=== PATIENT | female | born 1955 | race Caucasian/White ===

== ENCOUNTER 2022-07-23 10:26 | Emergency (ER) | payer OTHER, SELFPAY ==
--- NOTE | ~2022-07-23 | CT_ITS ---
Indication: Weakness falls for one month EXAMINATION: CT brain, CT cervical spine. This CT examination was performed using dose optimization techniques as appropriate, variously including the following: *Automated exposure control *Adjustment of mA and/or kV according to patient size (this includes techniques or standardized protocols for targeted exams where dose is matched to indication/reason for exam; i.e. extremities or head) *Use of iterative reconstruction technique. Radiation dose is [address] brain; Multiple sequences are obtained here. There is motion on many of these images. There is no midline shift or mass effect. CT cervical spine; Motion also degrades imaging here. No convincing evidence of fracture or dislocation on the imaging submitted. CT/CT head/brain wo IV con IMPRESSION: nondiagnostic CT the brain. Repeat is recommended when the patient is able. At that time I would also repeat the cervical spine. There is motion. No obvious finding but repeat would be recommended for definitive evaluation
--- NOTE | ~2022-07-23 | CT_ITS ---
Indication: Weakness falls for one month EXAMINATION: CT brain, CT cervical spine. This CT examination was performed using dose optimization techniques as appropriate, variously including the following: *Automated exposure control *Adjustment of mA and/or kV according to patient size (this includes techniques or standardized protocols for targeted exams where dose is matched to indication/reason for exam; i.e. extremities or head) *Use of iterative reconstruction technique. Radiation dose is [address] brain; Multiple sequences are obtained here. There is motion on many of these images. There is no midline shift or mass effect. CT cervical spine; Motion also degrades imaging here. No convincing evidence of fracture or dislocation on the imaging submitted. CT/CT cervical spine wo IV con IMPRESSION: nondiagnostic CT the brain. Repeat is recommended when the patient is able. At that time I would also repeat the cervical spine. There is motion. No obvious finding but repeat would be recommended for definitive evaluation
--- NOTE | ~2022-07-23 | CT_ITS ---
Examination: CT of the chest abdomen pelvis INDICATION: Weakness, hyperglycemia right upper quadrant abdominal pain. Axial imaging with coronal and sagittal reformatted images. Radiation dose is 1162 CT chest; The thoracic inlet is unremarkable with the exception of some soft tissue density associated with the right side of the trachea. This may represent secretions. Consider direct visualization. Coronary calcifications are noted. Some mildly prominent central adenopathy. No bulky adenopathy is seen here. This is a noncontrast study but the hilar regions do not appear pathologically enlarged. Imaging of the lung reid. Right lung; There is no pneumothorax. No significant infiltrate or effusion. Motion degrades imaging here. 4 mm nodule on image 24 of 62. Left lung; No pneumothorax. No effusion. No infiltrate. Again motion degrades imaging. Upper abdomen; There is limitation here from artifact related by the patient's arm in the field. Heterogeneous appearance the liver. I cannot rule out the liver lesions. Ultrasound would be recommended. For example a possible 2.2 x 2.2 cm lesion on image 14. Again artifact significantly limits this exam. Spleen is grossly within normal limits. The pancreas is unremarkable. The adrenal glands are within normal limits. The kidneys appear nonhydronephrotic. Some subtle areas of low attenuation within the kidneys but again there is artifact limits evaluation. Area of low attenuation midpole left kidney measures 1.3 cm. This could be artifactual. Underlying abnormality cannot be excluded. Nonobstructing calculus lower pole in the right is noted. Gallbladder shows probable small gallstones or sludge. Bladder is grossly unremarkable. There is contrast in the large bowel. The bowel pattern is felt to be nonobstructing. Likely diverticular disease in the colon but no convincing evidence for diverticulitis. The abdominal wall is felt to be within normal limits. There is no free fluid. Atherosclerotic changes in the vasculature are noted. There is no bulky adenopathy here. Review of the bone windows in the chest and abdomen does not demonstrate acute finding. Mild anterolisthesis of L4 and L5 may be degenerative in nature. CT/CT abdomen pelvis wo IV con IMPRESSION: This exam is limited here from motion artifact and artifact otherwise as described. In the chest there is no evidence for pneumothorax or effusion. No significant infiltrate is seen. Some soft tissue along the right-sided the upper trachea could be secretions. Underlying lesion cannot be excluded Coronary calcifications are noted There does appear to be a 4 mm nodule in the right midlung. If there are risk factors for lung malignancy recommend CT of the chest and one year. In the abdomen pelvis again evaluation is largely limited There is no free fluid in the bowel pattern is felt to be nonobstructing. There is no free air. Cannot exclude abnormality/lesions of the liver. This appearance may be artifactual as described. Recommend repeat CT with contrast or ultrasound to fully evaluate. Similarly heterogeneous appearance to the kidneys is likely artifactual related to motion and again the patient's arms within the field. Underlying lesions cannot be excluded. Other findings as described above. There is diverticulosis here but no evidence for diverticulitis.
[2022-07-23 10:51] VITALS: BP 106/69; PULSE 97; RESP 18; TEMP 36.6; O2SAT 94; BMI 23.4
--- NOTE | 2022-07-23 10:56 | ECG_ITS ---
Test Reason : weakness Blood Pressure : / mmHG Vent. Rate : 094 BPM Atrial Rate : 094 BPM P-R Int : 132 ms QRS Dur : 080 ms QT Int : 360 ms P-R-T Axes : 088 100 045 degrees QTc Int : 450 ms Poor data quality Normal sinus rhythm Right atrial enlargement Rightward axis Pulmonary disease pattern Abnormal ECG When compared with ECG of 19-MAY-2019 19:57, ST no longer depressed in Lateral leads Referred By: Generic ED Physician Electronically Signed By:AWILDA CRA MD
[2022-07-23 11:25] LABS: MANUAL DIFF FLAG NO
[2022-07-23 11:26] LABS: Basophils Absolute Auto 0.1 X10*3/uL (0.0-0.2); Basophils Percent Auto 0.7 % (0-2); Eosinophils Percent Auto 0.3 % (0-4); Hemoglobin 16.3 g/dl (12.0-16.0); Imm Gran Abs Auto 0.04 X10*3/uL (0.00-0.03); Imm Gran Pct Auto 0.4 % (0.0-0.4); Lymphocytes Percent Auto 10.2 % (20-40); Mean Corpuscular HGB Conc 34.7 g/dl (31.0-35.0); Mean Corpuscular Hemoglobin 28.3 pg (27.0-33.0); Mean Corpuscular Volume 81.7 fL (80.0-98.0); Mean Platelet Volume 11.5 fL (9.4-12.3); Monocytes Absolute Auto 0.6 X10*3/uL (0.1-1.2); Monocytes Percent Auto 5.6 % (2-11); Neutrophils Absolute Auto 8.4 x10*3/uL (2.0-8.3); Neutrophils Percent Auto 82.8 % (45-73); Platelet Count 241 X10*3/uL (160-400); Red Blood Count 5.75 X10*6/uL (4.20-5.50); Red Cell Distribution Width 11.5 % (11.0-16.0); White Blood Count 10.1 X10*3/uL (4.8-10.8)
[2022-07-23 11:46] LABS: Troponin-I High Sensitivity 5.9 ng/L (<3.5-17.0)
[2022-07-23 12:07] LABS: Alanine Aminotransferase 10 U/L (0-31); Albumin Level 4.4 g/dL (3.5-5.0); Alkaline Phosphatase 100 U/L (39-117); Anion Gap 22 (12-20); Aspartate Amino Transferase 10 U/L (5-31); Bilirubin Total 0.5 mg/dL (0.0-1.0); Blood Urea Nitrogen 36 mg/dL (9-16); Calcium 10.4 mg/dL (8.4-10.2); Carbon Dioxide 24 mmol/L (22-29); Chloride 92 mmol/L (96-108); Creatinine Clr Calc Pharmacy 27.5; Estimated Glomerular Filt Rate 36; Glucose Random 681 mg/dL (60-115); Potassium 5.5 mmol/L (3.3-5.1); Sodium 132 mmol/L (135-145); Total Protein 7.7 g/dL (6.5-8.0)
[2022-07-23 12:33] VITALS: BP 135/78; PULSE 88; RESP 16; O2SAT 91
[2022-07-23] MEDS: 0.9 % Sodium Chloride 1,000 ML 999 ML IVCONT ×3 (12:43→16:58)
[2022-07-23] MEDS: Insulin Regular, Human 100 UNIT/ML 3 ML VIAL 10 UNIT IVPUSH (12:43)
[2022-07-23 12:44] LABS: Glucose, Whole Blood 544 mg/dL (60-115)
[2022-07-23 12:59] LABS: Lipase 9 U/L (8-78)
[2022-07-23 13:12] LABS: Ammonia 18 umol/L (13-55)
[2022-07-23 13:16] LABS: Lactic Acid 0.9 mmol/L (0.5-2.0)
[2022-07-23 13:17] LABS: Ethanol < 10 mg/dL
[2022-07-23 13:22] LABS: Acetone, serum QL Negative (Negative)
[2022-07-23 13:24] LABS: COVID-19 Test Negative (Negative); IDNOW Serial# 16C4AD1C
[2022-07-23 13:33] LABS: Appearance Urine Clear; Color Urine Yellow; Glucose Urine UA >=1000 mg/dL (Negative); Leukocyte Esterase Urine Negative (Negative); Nitrite Urine Negative (Negative); PH 5.5 (5.0-9.0); Specific Gravity - Urine >= 1.030 (1.005-1.025); UMIC TRIGGER UACC YES; Urine Blood Negative (Negative); Urine Ketones Negative (Negative); Urine Protein Negative (Neg-Trace)
[2022-07-23 13:38] LABS: Bacteria Urine None Seen (None Seen); Hyaline Casts Urine 0-2 /LPF (0-2); RBC Urine 0-2 /HPF (0-2); Squamous Epithelial Cell Urine 0-2 /HPF (0-2); WBC Urine 0-5 /HPF (0-5)
[2022-07-23 13:58] LABS: Amphetamine Screen Urine Not Detected (Not Detect); Barbiturates, Urine Not Detected (Not Detect); Benzodiazepines Screen Urine Not Detected (Not Detect); Cannabinoid Screen Urine Not Detected (Not Detect); Cocaine Screen Urine Not Detected (Not Detect); Fentanyl, urine Not Detected (Not Detect); Opiate Screen Urine Not Detected (Not Detect); Phencyclidine Screen Urine Not Detected (Not Detect)
[2022-07-23] MEDS: Nicotine 21 MG PATCH.TD24 TRANSDERMA (14:03)
[2022-07-23] MEDS: LORazepam 1 MG TABLET 2 MG PO (14:03)
[2022-07-23 14:05] LABS: Glucose, Whole Blood 225 mg/dL (60-115)
[2022-07-23 14:07] VITALS: BP 135/78; PULSE 88; RESP 18; O2SAT 100
--- NOTE | 2022-07-23 14:08 | PC.NURSE ---
Patien anxious, trying to get out of bed. constant redirection needed, gave her lorazepam 2mg. Patient also asking to go outside to smoke a cigaret, per providers orders put a nicotine patch on left arm. color television console monitor unable to be assess when patient is shaking according to patient this is baseline. when not shaking normal sinus heart rate in the 80s
--- NOTE | 2022-07-23 14:10 | ED.WEAKNESS ---
HPI - Weakness General Chief complaint: General Medical Stated complaint: multiple complaints Time Seen by Provider: 07/23/22 12:04 Source: patient Mode of arrival: ambulatory Limitations: other (Poor historian/increased confusion/altered mental status) History of Present Illness HPI Narrative: 66-year-old female with a past medical history of chronic pain with history of opioid abuse on Suboxone, COPD, HTN, COPD, SD s/p CABG who smokes cigarettes daily she reports presenting to the ER due to increased confusion, generalized weakness, multiple falls, back pain, decreased p.o. intake and feeling of being on while at home over the past month worse in the past 2 weeks. Caregiver reports that she fell this morning. Patient reports that she has been having elevated glucose level despite taking her insulin at home reports she took it this morning although is unsure what insulin she is on. She reports she has also had multiple falls over the past month. She also reports abdominal pain and back pain. She denies any head injury, loss of consciousness, prolonged down time, changes in vision, jaw pain, nausea/vomiting, chest pain or shortness of breath, dyspnea on exertion, orthopnea, palpitations, paresthesias, flank pain, dysuria, hematuria, abnormal vaginal discharge, black or bloody stools, urinary bowel incontinence or retention, rashes, extremity pain or swelling, lower extremity edema or calf tenderness, recent travel or sick contacts, cough, sore throat, nasal congestion, headaches, neck pain/stiffness or any other symptoms complaints or concerns at this time. MD Complaint: generalized weakness and lack of energy Onset (ago): week(s) (Over the past month worse in the past 2 weeks) Duration: constant and progressively worsening Location: generalized Severity: moderate Relieving factors: none Exacerbating factors: none Associated symptoms: confusion Related Data Allergies Allergy/AdvReac Type Severity Reaction Status Date / Time broccoli [BROCCOLI] Allergy Unknown HIVES Unverified 06/27/20 17:52 gabapentin [GABAPENTIN] Allergy Unknown UNKNOWN Unverified 07/01/20 06:59 latex [LATEX] Allergy Unknown UNKNOWN Unverified 07/01/20 06:59 shellfish derived Allergy Unknown UNK Unverified 06/27/20 17:52 [SHELLFISH DERIVED] Review of Systems Review of Systems: Constitutional : + decreased p.o. intake, + generalized fatigue/malaise, No Weight loss, No Fever, No Chills, No Night Sweats ENT/Mouth : No Hearing loss, No Ear Pain, No Nasal Congestion, No Sinus Pain, No Hoarseness, No sore throat, No Rhinorrhea, No Swallowing Difficulty Eyes: No Eye Pain, No Swelling, No Redness, No Foreign Body, No Discharge, No Vision Changes Cardiovascular : No Chest Pain, No SOB, No Dyspnea on Exertion, No Orthopnea, No Edema, No Palpitations Respiratory : No Cough, No Sputum, No Wheezing, No Smoke Exposure, No Dyspnea Gastrointestinal : + abdominal pain, No Nausea, No Vomiting, No Diarrhea, No Constipation, No Hematochezia, No Melena Genitourinary : no irregular bleeding, No Dysuria, No Urinary Frequency, No Hematuria, No Urinary Incontinence, No Urgency, No Flank Pain, No Urinary Flow Changes, No Hesitancy Musculoskeletal : + back pain, No joint pain, No Myalgias, No Joint Swelling Skin : No Skin Lesions, No rash Neuro : + General Weakness c multiple falls, + Confusion, No Focal Weakness, No Numbness, No Paresthesias, No Loss of Consciousness, No Dizziness, No Headache Psych : No Anxiety/Panic, No Depression, No SI/HI/AH/VH, No Social Issues, Heme/Lymph: No Bruising, No Bleeding,No Lymphadenopathy Endocrine : + Polyuria, + Polydipsia, + elevated glucose levels, No Temperature Intolerance Yes all other systems are reviewed and are negative [facility] Past Medical History Attestation statement: The following information was validated with the patient. Source: old records reviewed, obtained from family and nursing notes reviewed Surgical History Hx of CABG Social History Social History Patient Tobacco Use Status: Current everyday Tobacco user Use of substances other than those prescribed or required for medical reasons: No Advance Directives: No Advance Directives Information Provided: Yes Physical Exam Vital Signs: Vital Signs: Last Vital Signs Temp 97.9 F 07/23/22 10:51 Pulse 78 07/23/22 16:19 Resp 18 07/23/22 16:19 BP 99/60 07/23/22 16:19 Pulse Ox 98 07/23/22 16:19 O2 Del Method 10/13/22 16:19 O2 Flow Rate 2 07/23/22 16:19 BMI result Body Mass Index 23.4 Vital signs have been reviewed as normal and appeared to be correct. Blood pressure normal. Heart rate normal. Respiration rate normal. Temperature normal. Oxygen saturation normal. Appearance: Alert although appears confused. Oriented to self. Reports that she was at [facility]. Disheveled. Poor hygiene. Poor grooming. No acute distress. Head: Normal external exam. Normocephalic. Atraumatic. Able to rotate head bilaterally. No Ortega sign no raccoon eyes noted. Eyes: PERRLA. EOMI. No nystagmus noted. Conjunctiva and sclera normal. Eyelids normal. Corneal reflex normal. ENT: EAC normal. TM's Normal. No hemotympanum noted. No septal hematoma noted. Hearing normal. Pharynx normal. Uvula midline. tongue midline. Moist mucous membranes. No trismus noted. No drooling noted. No muffled voice noted. No nystagmus noted. Neck: Normal inspection. Neck supple. FROM. No adenopathy. Trachea midline. Thyroid Normal. No meningeal signs. No neck mass noted. CVS: Normal heart rate and rhythm. Heart sound normal. No murmurs noted. Pulses normal throughout. Respiratory: No respiratory distress. Painless inspiration. Breath sounds normal. No wheezes/rales/rhonchi noted. Chest nontender. No accessory muscle usage noted or decreased air movement noted. Abdomen: Soft and moderate tenderness palpation to right upper quadrant with guarding. Bowel sounds normal in all 4 quadrants. No distention noted. No organomegaly noted. No visible injury noted. Negative Rovsing test. Negative obturator's test. Negative psoas test. Negative Bustamante's test. Back: No CVA tenderness. Full range of motion noted. Skin: Skin warm and dry. Normal skin color. Normal skin turgor. No rashes/lesions/lacerations noted. Extremities: No lower extremity edema. Extremities exhibit normal range of motion. Extremities nontender. Able to shrug shoulders bilaterally and keep up against resistance. Neuro: Oriented X 3. No motor deficit. No sensory deficit. Reflexes normal. Moving all extremities. No focal motor deficits. Cranial nerves II-XI intact bilaterally. Facial strength normal. Normal cognition. Speech normal. Gait normal. Strength 5/5 throughout. No pronator drift. No tremor noted. No fasciculations noted. No rigidity noted. Muscle tone normal throughout. No asterixis noted. Wlcrmq-mi-rycz test normal. Heel to glass test normal. Tandem gait normal. Does not sway with eyes open. Romberg test negative. Rapid alternating movement upper extremity normal. Rapid alternating movement lower extremity normal. Hand drop from overhead Misses face. NIHSS score 0. Course Course Course Narrative: 12:30pm - 66yoF c PMHx of chronic pain with history of opioid abuse on Suboxone, COPD, HTN, COPD, SD s/p CABG who smokes cigarettes daily she reports presenting to the ER due to increased confusion, generalized weakness, multiple falls, back pain, decreased p.o. intake and feeling of being on while at home over the past month worse in the past 2 weeks. Caregiver reports that she fell this morning. Patient reports that she has been having elevated glucose level despite taking her insulin at home reports she took it this morning although is unsure what insulin she is on. She reports she has also had multiple falls over the past month. She also reports abdominal pain and back pain. Patient had labs while she was in the waiting room and I was called with critical labs at this time. - labs revealed hemoglobin of 16. Sodium 132. Potassium 5.5. Chloride 92. Anion gap 22. BUN 36. Creatinine 1.48. Random glucose 681. Troponin 5.9. Otherwise all other labs are within normal limits. Plan: Therefore at this time will add blood cultures, lactic acid, acetone level, UA, drugs of abuse screen, ethanol level, COVID swab. Provide 2 L of IV fluids with 10 units of IV insulin re-evaluate. Reevaluation(s) Reevaluation #1: - after 2 L of fluid patient's BUN/creatinine 30/0.86. - Troponin 7.0 which is negative delta. - CT scan of brain within normal limits no acute processes noted. Cervical spine had too much motion/artifact therefore they recommended repeating although patient is not having any point cervical tenderness denies any neck pain and has full range of motion has no obvious trauma to the neck therefore will not radiate again. - CT scan of chest revealed lung nodule and limited by movement otherwise no other acute processes noted. - CT scan abdomen pelvis without IV contrast limited by movement although no acute processes that they can see. - Her BoyFriend Mick Cardona [phone] and Cristal sister in Law and Brother Carlos [facility] at [phone] I discussed the patient's results with them. He reports that she has been having multiple falls and he does not believe she is safe to go home at this time he is recommending short-term rehab. Sister in Law and Brother want her to live with them and are palnning on moving her in this Wednesday. - therefore at this time patient is placed in Physician observation because the patient needs more time to be evaluated by physical therapy and case management for possible placement will continue to monitor. Patient is currently resting respirations even and nonlabored in no apparent distress. No focal neuro deficit noted. Lungs clear to auscultation. CV RRR. Will continue to monitor Time: 17:52 MDM - Weakness Medical Records Attestation: I reviewed the patient's medical records. Lab Data Attestation: I reviewed the patient's lab results. Result diagrams: 07/23/22 11:20 07/23/22 14:52 Labs: Lab Results 07/23/22 07/23/22 07/23/22 Range/Units 11:20 11:20 11:20 WBC 10.1 (4.8-10.8) X10*3/uL RBC 5.75 H (4.20-5.50) X10*6/uL Hgb 16.3 H (12.0-16.0) g/dl Hct 47.0 (37.0-47.0) % MCV 81.7 (80.0-98.0) fL MCH 28.3 (27.0-33.0) pg MCHC 34.7 (31.0-35.0) g/dl RDW 11.5 (11.0-16.0) % Plt Count 241 (160-400) X10*3/uL MPV 11.5 (9.4-12.3) fL Immature Gran % (Auto) 0.4 (0.0-0.4) % Neut % (Auto) 82.8 H (45-73) % Lymph % (Auto) 10.2 L (20-40) % Overton % (Auto) 5.6 (2-11) % Eos % (Auto) 0.3 (0-4) % Baso % (Auto) 0.7 (0-2) % Lymph # (Auto) 1.0 L (1.2-4.9) X10*3/uL Overton # (Auto) 0.6 (0.1-1.2) X10*3/uL Eos # (Auto) 0.0 (0.0-0.4) X10*3/uL Baso # (Auto) 0.1 (0.0-0.2) X10*3/uL Abs Immat Gran (auto) 0.04 H (0.00-0.03) X10*3/uL Absolute Neuts (auto) 8.4 H (2.0-8.3) x10*3/uL Absolute Nucleated RBC 0.000 (0.0-0.012) X10*3/uL Nucleated RBC % (auto) 0.0 (0.0-0.2) /100WBC Sodium 132 L (135-145) mmol/L Potassium 5.5 H (3.3-5.1) mmol/L Chloride 92 L (96-108) mmol/L Carbon Dioxide 24 (22-29) mmol/L Anion Gap 22 H (12-20) BUN 36 H (9-16) mg/dL Creatinine 1.48 H (0.5-1.4) mg/dL Estim Creat Clear Calc 27.5 Estimated GFR 36 POC Glucose (60-115) mg/dL Random Glucose 681 H* (60-115) mg/dL Lactic Acid (0.5-2.0) mmol/L Calcium 10.4 H (8.4-10.2) mg/dL Total Bilirubin 0.5 (0.0-1.0) mg/dL Direct Bilirubin (0.0-0.5) mg/dL AST 10 (5-31) U/L ALT 10 (0-31) U/L Alkaline Phosphatase 100 (39-117) U/L Ammonia (13-55) umol/L Lactate Dehydrogenase (122-220) U/L Total Creatine Kinase 29 (26-140) U/L Troponin I High Sens 5.9 (<3.5-17.0) ng/L Total Protein 7.7 (6.5-8.0) g/dL Albumin 4.4 (3.5-5.0) g/dL Amylase (28-100) U/L Lipase 9 (8-78) U/L Urine Color Urine Appearance Urine pH (5.0-9.0) Ur Specific Kennard (1.005-1.025) Urine Protein (Neg-Trace) mg/dL Urine Glucose (UA) (Negative) mg/dL Urine Ketones (Negative) mg/dL Urine Blood (Negative) Urine Nitrite (Negative) Ur Leukocyte Esterase (Negative) Urine RBC (0-2) /HPF Urine WBC (0-5) /HPF Ur Squamous Epith Cells (0-2) /HPF Urine Bacteria (None Seen) Hyaline Casts (0-2) /LPF Urine Opiates Screen (Not Detect) Urine Fentanyl Screen (Not Detect) Ur Barbiturates Screen (Not Detect) Ur Phencyclidine Scrn (Not Detect) Ur Amphetamines Screen (Not Detect) U Benzodiazepines Scrn (Not Detect) Urine Cocaine Screen (Not Detect) U Marijuana (THC) Screen (Not Detect) Ethyl Alcohol mg/dL Acetone, Qual (Negative) COVID-19 (CARLOS) (Negative) COVID-19 Clin Com 07/23/22 07/23/22 07/23/22 Range/Units 12:41 12:47 12:47 WBC (4.8-10.8) X10*3/uL RBC (4.20-5.50) X10*6/uL Hgb (12.0-16.0) g/dl Hct (37.0-47.0) % MCV (80.0-98.0) fL MCH (27.0-33.0) pg MCHC (31.0-35.0) g/dl RDW (11.0-16.0) % Plt Count (160-400) X10*3/uL MPV (9.4-12.3) fL Immature Gran % (Auto) (0.0-0.4) % Neut % (Auto) (45-73) % Lymph % (Auto) (20-40) % Overton % (Auto) (2-11) % Eos % (Auto) (0-4) % Baso % (Auto) (0-2) % Lymph # (Auto) (1.2-4.9) X10*3/uL Overton # (Auto) (0.1-1.2) X10*3/uL Eos # (Auto) (0.0-0.4) X10*3/uL Baso # (Auto) (0.0-0.2) X10*3/uL Abs Immat Gran (auto) (0.00-0.03) X10*3/uL Absolute Neuts (auto) (2.0-8.3) x10*3/uL Absolute Nucleated RBC (0.0-0.012) X10*3/uL Nucleated RBC % (auto) (0.0-0.2) /100WBC Sodium (135-145) mmol/L Potassium (3.3-5.1) mmol/L Chloride (96-108) mmol/L Carbon Dioxide (22-29) mmol/L Anion Gap (12-20) BUN (9-16) mg/dL Creatinine (0.5-1.4) mg/dL Estim Creat Clear Calc Estimated GFR POC Glucose 544 H* (60-115) mg/dL Random Glucose (60-115) mg/dL Lactic Acid 0.9 (0.5-2.0) mmol/L Calcium (8.4-10.2) mg/dL Total Bilirubin (0.0-1.0) mg/dL Direct Bilirubin (0.0-0.5) mg/dL AST (5-31) U/L ALT (0-31) U/L Alkaline Phosphatase (39-117) U/L Ammonia 18 (13-55) umol/L Lactate Dehydrogenase (122-220) U/L Total Creatine Kinase (26-140) U/L Troponin I High Sens (<3.5-17.0) ng/L Total Protein (6.5-8.0) g/dL Albumin (3.5-5.0) g/dL Amylase (28-100) U/L Lipase (8-78) U/L Urine Color Urine Appearance Urine pH (5.0-9.0) Ur Specific Kennard (1.005-1.025) Urine Protein (Neg-Trace) mg/dL Urine Glucose (UA) (Negative) mg/dL Urine Ketones (Negative) mg/dL Urine Blood (Negative) Urine Nitrite (Negative) Ur Leukocyte Esterase (Negative) Urine RBC (0-2) /HPF Urine WBC (0-5) /HPF Ur Squamous Epith Cells (0-2) /HPF Urine Bacteria (None Seen) Hyaline Casts (0-2) /LPF Urine Opiates Screen (Not Detect) Urine Fentanyl Screen (Not Detect) Ur Barbiturates Screen (Not Detect) Ur Phencyclidine Scrn (Not Detect) Ur Amphetamines Screen (Not Detect) U Benzodiazepines Scrn (Not Detect) Urine Cocaine Screen (Not Detect) U Marijuana (THC) Screen (Not Detect) Ethyl Alcohol mg/dL Acetone, Qual (Negative) COVID-19 (CARLOS) (Negative) COVID-19 Clin Com 07/23/22 07/23/22 07/23/22 Range/Units 12:48 12:48 12:48 WBC (4.8-10.8) X10*3/uL RBC (4.20-5.50) X10*6/uL Hgb (12.0-16.0) g/dl Hct (37.0-47.0) % MCV (80.0-98.0) fL MCH (27.0-33.0) pg MCHC (31.0-35.0) g/dl RDW (11.0-16.0) % Plt Count (160-400) X10*3/uL MPV (9.4-12.3) fL Immature Gran % (Auto) (0.0-0.4) % Neut % (Auto) (45-73) % Lymph % (Auto) (20-40) % Overton % (Auto) (2-11) % Eos % (Auto) (0-4) % Baso % (Auto) (0-2) % Lymph # (Auto) (1.2-4.9) X10*3/uL Overton # (Auto) (0.1-1.2) X10*3/uL Eos # (Auto) (0.0-0.4) X10*3/uL Baso # (Auto) (0.0-0.2) X10*3/uL Abs Immat Gran (auto) (0.00-0.03) X10*3/uL Absolute Neuts (auto) (2.0-8.3) x10*3/uL Absolute Nucleated RBC (0.0-0.012) X10*3/uL Nucleated RBC % (auto) (0.0-0.2) /100WBC Sodium (135-145) mmol/L Potassium (3.3-5.1) mmol/L Chloride (96-108) mmol/L Carbon Dioxide (22-29) mmol/L Anion Gap (12-20) BUN (9-16) mg/dL Creatinine (0.5-1.4) mg/dL Estim Creat Clear Calc Estimated GFR POC Glucose (60-115) mg/dL Random Glucose (60-115) mg/dL Lactic Acid (0.5-2.0) mmol/L Calcium (8.4-10.2) mg/dL Total Bilirubin (0.0-1.0) mg/dL Direct Bilirubin (0.0-0.5) mg/dL AST (5-31) U/L ALT (0-31) U/L Alkaline Phosphatase (39-117) U/L Ammonia (13-55) umol/L Lactate Dehydrogenase (122-220) U/L Total Creatine Kinase (26-140) U/L Troponin I High Sens (<3.5-17.0) ng/L Total Protein (6.5-8.0) g/dL Albumin (3.5-5.0) g/dL Amylase (28-100) U/L Lipase (8-78) U/L Urine Color Urine Appearance Urine pH (5.0-9.0) Ur Specific Kennard (1.005-1.025) Urine Protein (Neg-Trace) mg/dL Urine Glucose (UA) (Negative) mg/dL Urine Ketones (Negative) mg/dL Urine Blood (Negative) Urine Nitrite (Negative) Ur Leukocyte Esterase (Negative) Urine RBC (0-2) /HPF Urine WBC (0-5) /HPF Ur Squamous Epith Cells (0-2) /HPF Urine Bacteria (None Seen) Hyaline Casts (0-2) /LPF Urine Opiates Screen (Not Detect) Urine Fentanyl Screen (Not Detect) Ur Barbiturates Screen (Not Detect) Ur Phencyclidine Scrn (Not Detect) Ur Amphetamines Screen (Not Detect) U Benzodiazepines Scrn (Not Detect) Urine Cocaine Screen (Not Detect) U Marijuana (THC) Screen (Not Detect) Ethyl Alcohol < 10 mg/dL Acetone, Qual Negative (Negative) COVID-19 (CARLOS) Negative (Negative) COVID-19 Clin Com See Note 07/23/22 07/23/22 07/23/22 Range/Units 13:26 13:26 14:02 WBC (4.8-10.8) X10*3/uL RBC (4.20-5.50) X10*6/uL Hgb (12.0-16.0) g/dl Hct (37.0-47.0) % MCV (80.0-98.0) fL MCH (27.0-33.0) pg MCHC (31.0-35.0) g/dl RDW (11.0-16.0) % Plt Count (160-400) X10*3/uL MPV (9.4-12.3) fL Immature Gran % (Auto) (0.0-0.4) % Neut % (Auto) (45-73) % Lymph % (Auto) (20-40) % Overton % (Auto) (2-11) % Eos % (Auto) (0-4) % Baso % (Auto) (0-2) % Lymph # (Auto) (1.2-4.9) X10*3/uL Overton # (Auto) (0.1-1.2) X10*3/uL Eos # (Auto) (0.0-0.4) X10*3/uL Baso # (Auto) (0.0-0.2) X10*3/uL Abs Immat Gran (auto) (0.00-0.03) X10*3/uL Absolute Neuts (auto) (2.0-8.3) x10*3/uL Absolute Nucleated RBC (0.0-0.012) X10*3/uL Nucleated RBC % (auto) (0.0-0.2) /100WBC Sodium (135-145) mmol/L Potassium (3.3-5.1) mmol/L Chloride (96-108) mmol/L Carbon Dioxide (22-29) mmol/L Anion Gap (12-20) BUN (9-16) mg/dL Creatinine (0.5-1.4) mg/dL Estim Creat Clear Calc Estimated GFR POC Glucose 225 H (60-115) mg/dL Random Glucose (60-115) mg/dL Lactic Acid (0.5-2.0) mmol/L Calcium (8.4-10.2) mg/dL Total Bilirubin (0.0-1.0) mg/dL Direct Bilirubin (0.0-0.5) mg/dL AST (5-31) U/L ALT (0-31) U/L Alkaline Phosphatase (39-117) U/L Ammonia (13-55) umol/L Lactate Dehydrogenase (122-220) U/L Total Creatine Kinase (26-140) U/L Troponin I High Sens (<3.5-17.0) ng/L Total Protein (6.5-8.0) g/dL Albumin (3.5-5.0) g/dL Amylase (28-100) U/L Lipase (8-78) U/L Urine Color Yellow Urine Appearance Clear Urine pH 5.5 (5.0-9.0) Ur Specific Kennard >= 1.030 H (1.005-1.025) Urine Protein Negative (Neg-Trace) mg/dL Urine Glucose (UA) >=1000 H (Negative) mg/dL Urine Ketones Negative (Negative) mg/dL Urine Blood Negative (Negative) Urine Nitrite Negative (Negative) Ur Leukocyte Esterase Negative (Negative) Urine RBC 0-2 (0-2) /HPF Urine WBC 0-5 (0-5) /HPF Ur Squamous Epith Cells 0-2 (0-2) /HPF Urine Bacteria None Seen (None Seen) Hyaline Casts 0-2 (0-2) /LPF Urine Opiates Screen Not Detected (Not Detect) Urine Fentanyl Screen Not Detected (Not Detect) Ur Barbiturates Screen Not Detected (Not Detect) Ur Phencyclidine Scrn Not Detected (Not Detect) Ur Amphetamines Screen Not Detected (Not Detect) U Benzodiazepines Scrn Not Detected (Not Detect) Urine Cocaine Screen Not Detected (Not Detect) U Marijuana (THC) Screen Not Detected (Not Detect) Ethyl Alcohol mg/dL Acetone, Qual (Negative) COVID-19 (CARLOS) (Negative) COVID-19 Clin Com 07/23/22 07/23/22 07/23/22 Range/Units 14:52 14:52 17:10 WBC (4.8-10.8) X10*3/uL RBC (4.20-5.50) X10*6/uL Hgb (12.0-16.0) g/dl Hct (37.0-47.0) % MCV (80.0-98.0) fL MCH (27.0-33.0) pg MCHC (31.0-35.0) g/dl RDW (11.0-16.0) % Plt Count (160-400) X10*3/uL MPV (9.4-12.3) fL Immature Gran % (Auto) (0.0-0.4) % Neut % (Auto) (45-73) % Lymph % (Auto) (20-40) % Overton % (Auto) (2-11) % Eos % (Auto) (0-4) % Baso % (Auto) (0-2) % Lymph # (Auto) (1.2-4.9) X10*3/uL Overton # (Auto) (0.1-1.2) X10*3/uL Eos # (Auto) (0.0-0.4) X10*3/uL Baso # (Auto) (0.0-0.2) X10*3/uL Abs Immat Gran (auto) (0.00-0.03) X10*3/uL Absolute Neuts (auto) (2.0-8.3) x10*3/uL Absolute Nucleated RBC (0.0-0.012) X10*3/uL Nucleated RBC % (auto) (0.0-0.2) /100WBC Sodium 141 (135-145) mmol/L Potassium 4.3 D (3.3-5.1) mmol/L Chloride 105 (96-108) mmol/L Carbon Dioxide 25 (22-29) mmol/L Anion Gap 15 (12-20) BUN 30 H (9-16) mg/dL Creatinine 0.86 (0.5-1.4) mg/dL Estim Creat Clear Calc 47.4 Estimated GFR > 60 POC Glucose 135 H (60-115) mg/dL Random Glucose 107 D (60-115) mg/dL Lactic Acid (0.5-2.0) mmol/L Calcium 9.2 D (8.4-10.2) mg/dL Total Bilirubin 0.4 (0.0-1.0) mg/dL Direct Bilirubin 0.2 (0.0-0.5) mg/dL AST 10 (5-31) U/L ALT 8 (0-31) U/L Alkaline Phosphatase 86 (39-117) U/L Ammonia (13-55) umol/L Lactate Dehydrogenase 191 (122-220) U/L Total Creatine Kinase 31 (26-140) U/L Troponin I High Sens 7.0 (<3.5-17.0) ng/L Total Protein 6.4 L (6.5-8.0) g/dL Albumin 3.7 (3.5-5.0) g/dL Amylase 22 L (28-100) U/L Lipase 9 (8-78) U/L Urine Color Urine Appearance Urine pH (5.0-9.0) Ur Specific Kennard (1.005-1.025) Urine Protein (Neg-Trace) mg/dL Urine Glucose (UA) (Negative) mg/dL Urine Ketones (Negative) mg/dL Urine Blood (Negative) Urine Nitrite (Negative) Ur Leukocyte Esterase (Negative) Urine RBC (0-2) /HPF Urine WBC (0-5) /HPF Ur Squamous Epith Cells (0-2) /HPF Urine Bacteria (None Seen) Hyaline Casts (0-2) /LPF Urine Opiates Screen (Not Detect) Urine Fentanyl Screen (Not Detect) Ur Barbiturates Screen (Not Detect) Ur Phencyclidine Scrn (Not Detect) Ur Amphetamines Screen (Not Detect) U Benzodiazepines Scrn (Not Detect) Urine Cocaine Screen (Not Detect) U Marijuana (THC) Screen (Not Detect) Ethyl Alcohol mg/dL Acetone, Qual (Negative) COVID-19 (CARLOS) (Negative) COVID-19 Clin Com Imaging Data CT SCAN OF BRAIN/CERVICAL SPINE/CHEST/ABDOMEN PELVIS ALL WITHOUT IV CONTRAST: Attestation: I personally reviewed and interpreted this imaging study as follows: ECG Data Attestation: I personally reviewed and interpreted this ECG as follows: ECG interpretation date: 07/23/22 ECG interpretation time: 11:08 Interpretation: Normal sinus rhythm with ventricular rate of 94 with right atrial enlargement right word axis deviation otherwise no acute ischemic change are noted. Similar compared to prior EKG on 05/19/2019 Critical Care Time Critical Care Time Critical Care Time: Yes Total Critical Care Time: 60 Attestation: I personally attest to this time spent taking care of the patient Discharge Plan Discharge Clinical Impression: Hyperglycemia, Acute hyponatremia, Generalized weakness, CASEY (acute kidney injury), Hyperkalemia, Multiple falls Patient Disposition: Still a Patient
[2022-07-23 15:15] LABS: Anion Gap 15 (12-20); Blood Urea Nitrogen 30 mg/dL (9-16); Calcium 9.2 mg/dL (8.4-10.2); Carbon Dioxide 25 mmol/L (22-29); Chloride 105 mmol/L (96-108); Creatinine Clr Calc Pharmacy 47.4; Estimated Glomerular Filt Rate > 60; Glucose Random 107 mg/dL (60-115); Potassium 4.3 mmol/L (3.3-5.1); Sodium 141 mmol/L (135-145)
[2022-07-23 16:19] VITALS: BP 99/60; PULSE 78; RESP 18; O2SAT 98
--- NOTE | 2022-07-23 16:20 | PC.NURSE ---
Patient sleeping comfortably. no sign of distress, VS WNL
--- NOTE | 2022-07-23 16:58 | PC.NURSE ---
Pt. BP trending down 92/51m, hanged 1L per providers orders. Pt sleeping comfortably. No other signs of distress.
[2022-07-23 17:20] LABS: Glucose, Whole Blood 135 mg/dL (60-115)
--- NOTE | 2022-07-23 18:25 | PC.NURSE ---
Pt sleep, ambulatory to bathroom to void with assist of one. Diana LEIGH spoke with Cristal and Helio (brother and sister in law) HCP who states pt not taking care of self when staying with the pt boyfriend and plan was for pt to move with them Wednesday. Plan for pt to stay overnight, see CM tomorrow.
[2022-07-23 18:30] LABS: Alanine Aminotransferase 8 U/L (0-31); Albumin Level 3.7 g/dL (3.5-5.0); Alkaline Phosphatase 86 U/L (39-117); Amylase 22 U/L (28-100); Aspartate Amino Transferase 10 U/L (5-31); Bilirubin Direct 0.2 mg/dL (0.0-0.5); Bilirubin Total 0.4 mg/dL (0.0-1.0); Lactate Dehydrogenase 191 U/L (122-220); Lipase 9 U/L (8-78); Total Protein 6.4 g/dL (6.5-8.0)
[2022-07-23 21:13] VITALS: BP 97/56; PULSE 81; RESP 12; TEMP 37.2; O2SAT 97
[2022-07-23 21:20] LABS: Glucose, Whole Blood 169 mg/dL (60-115)
[2022-07-23 23:32] VITALS: BP 89/53; PULSE 78; RESP 18; TEMP 36.6; O2SAT 95
[2022-07-23] MEDS: LORazepam 0.5 MG TABLET PO (23:40)
[2022-07-24] VITALS (10 sets, daily range): BP systolic 79–128; BP diastolic 48–73; PULSE 70–85; RESP 11–20; TEMP 36.7–37.3; O2SAT 90–100
[2022-07-24] MEDS: LORazepam 1 MG TABLET PO ×2 (03:37→20:59)
[2022-07-24] MEDS: Mirtazapine 7.5 MG TABLET PO (03:37)
[2022-07-24] MEDS: Gabapentin 100 MG CAPSULE PO ×4 (03:37→20:59)
[2022-07-24] MEDS: 0.9 % Sodium Chloride 1,000 ML 999 ML IV ×2 (04:28→23:05)
--- NOTE | 2022-07-24 04:28 | PC.NURSE ---
pt with soft blood pressures throughout stay in ED. 80s/40s. MD aware. given additional liter bolus fluids. pressure back up to 103/66. pt sleeping comfortably. no complaints or distress
[2022-07-24 07:11] LABS: Glucose, Whole Blood 187 mg/dL (60-115)
[2022-07-24] MEDS: Buprenorphine/Naloxone 8/2 mg FILM 2 FILM SUBLINGUAL (07:47)
[2022-07-24] MEDS: Sertraline HCL 50 MG TABLET PO (07:47)
--- NOTE | 2022-07-24 08:37 | PC.NURSE ---
alert, denies dizziness, bp in 80's, provider Elian aware. will check other arm and order fluid if needed
--- NOTE | 2022-07-24 08:58 | PHA.MEDREC ---
Pharmacy Consult ? Medication Reconciliation Pharmacy has reviewed the medication reconciliation completed by Mery. Patient reports not taking mirtazepine, ropinoril or sertraline (which line up with claim history). patient reporting using Sliding Scale insulin. Suboxone is BID instead of 2 film daily. Mariah Castillo, PharmD
--- NOTE | 2022-07-24 09:39 | PC.NURSE ---
pt has mult small old scabbed over wounds on buttock, see picture in chart by yuliana oviedo, padded dressing placed, pt alert, up to bathroom x 3 w assist x 1, nad, ate toast and coffee x 2
[2022-07-24 13:36] LABS: Glucose, Whole Blood 270 mg/dL (60-115)
[2022-07-24] MEDS: Insulin Lispro 100 UNIT/ML 3 ML VIAL SUBCUT ×2 (14:14→19:28)
--- NOTE | 2022-07-24 16:03 | MHC.CM.ED ---
Received telephone call from patient's [id number], Cristal. Cristal can be reached via telephone at [phone]. Cristal and Carlos are planning are moving patient into their home in [place] on Wednesday 07/25. Their address is [address] [place] [address]. Cristal feels patient will need long-term at discharge. Referral for VNA will be broadcasted in [facility] for staffing availability. Continue to monitor for d/c needs.
[2022-07-24 19:29] LABS: Glucose, Whole Blood 192 mg/dL (60-115)
[2022-07-24 20:58] LABS: Glucose, Whole Blood 148 mg/dL (60-115)
[2022-07-24] MEDS: Buprenorphine/Naloxone 8/2 mg FILM 1 FILM SUBLINGUAL (20:59)
--- NOTE | 2022-07-24 21:53 | PC.NURSE ---
Pt having low blood pressure, Assisted RN Mery with repositioning pt , rectal temperature taken 99.2, and fluids started. Provider is aware. Will continue to monitor
[2022-07-24] MEDS: 0.9 % Sodium Chloride 1,000 ML 999 ML IVCONT (21:55)
[2022-07-25 00:56] VITALS: BP 106/64; PULSE 93; RESP 18; O2SAT 97
[2022-07-25 03:47] VITALS: BP 100/61; PULSE 78; RESP 15; TEMP 36.6; O2SAT 98
[2022-07-25 06:11] VITALS: BP 95/58; PULSE 77; RESP 16; O2SAT 97
[2022-07-25 07:25] LABS: Glucose, Whole Blood 139 mg/dL (60-115)
[2022-07-25 08:21] VITALS: BP 99/58; PULSE 77; RESP 18; TEMP 36.9; O2SAT 82
--- NOTE | 2022-07-25 08:28 | PC.NURSE ---
pt with low oxygen rate noted on RA (82) appli 2 lnc and oxygen went up to 93 percent.
[2022-07-25 08:29] VITALS: O2SAT 93
[2022-07-25] MEDS: Buprenorphine/Naloxone 8/2 mg FILM 1 FILM SUBLINGUAL ×2 (08:54→21:54)
[2022-07-25] MEDS: Gabapentin 100 MG CAPSULE PO ×3 (08:54→21:54)
--- NOTE | 2022-07-25 10:35 | MHC.CM.ED ---
[facility] in [facility]. [facility] Anticipate patient will discharge to her brother and sister in laws home in [place] on Thursday 07/26. Family will transport her home. Continue to monitor for d/c needs.
[2022-07-25 13:54] LABS: Glucose, Whole Blood 238 mg/dL (60-115)
[2022-07-25] MEDS: Insulin Lispro 100 UNIT/ML 3 ML VIAL SUBCUT ×2 (13:57→21:54)
[2022-07-25 18:36] LABS: Glucose, Whole Blood 164 mg/dL (60-115)
[2022-07-25] MEDS: hydrOXYzine HCL 50 MG TABLET PO (19:38)
[2022-07-25 21:53] LABS: Glucose, Whole Blood 202 mg/dL (60-115)
--- NOTE | 2022-07-25 22:03 | PC.NURSE ---
Pt. on production control coordinator at this time. Pt. medicated and assisted OOB to bedside commode. Back in bed now with bed alarm on and warm blankets provided. Pt. expressing thanks to nurse and states that she is comfortable.
--- NOTE | 2022-07-25 22:10 | PC.NURSE ---
Pt.'s bed alarm on at this time. Call light within reach
[2022-07-26 03:23] VITALS: BP 106/59; PULSE 73; RESP 15; TEMP 36.9; O2SAT 93
[2022-07-26 04:29] VITALS: BP 94/58; PULSE 64; RESP 19; O2SAT 92
[2022-07-26 06:10] VITALS: BP 96/57; PULSE 68; RESP 15; O2SAT 93
[2022-07-26 07:09] LABS: Glucose, Whole Blood 163 mg/dL (60-115)
[2022-07-26 07:33] VITALS: BP 120/81; PULSE 94; RESP 15; TEMP 36.6; O2SAT 91
[2022-07-26] MEDS: Insulin Lispro 100 UNIT/ML 3 ML VIAL SUBCUT (07:41)
[2022-07-26] MEDS: Gabapentin 100 MG CAPSULE PO (07:42)
[2022-07-26] MEDS: Buprenorphine/Naloxone 8/2 mg FILM 1 FILM SUBLINGUAL (07:42)
--- NOTE | 2022-07-26 08:54 | MHC.CM.ED ---
Patient remains in ER. Will discharge to brother, Carlos and [id number], Cristal's home with [facility]. [facility] booked for 9am. Patient, Rose Marie Bee RN and Jojo LEIGH aware. Continue to monitor for d/c needs.
--- NOTE | 2022-07-26 10:00 | PC.NURSE ---
patient a/o to self .equal unlabored breathing . walking around room , ambulated to stretcher for transport to family . Report given to EMS . Iv was removed by patient . patient aware of plan of care .
== END 2022-07-26 10:33 | disposition home or self-care (01) ==
PROVIDERS: Physician Assistant Medical; Emergency Provider Student in an Organized Health Care Education/Training Program; PCP Nurse Practitioner Family
DX: E11.65 Type 2 diabetes mellitus with hyperglycemia (principal); R53.1 Weakness; N17.9 Acute kidney failure, unspecified; E87.1 Hypo-osmolality and hyponatremia; E87.5 Hyperkalemia; R29.6 Repeated falls; Z91.81 History of falling; Z20.822 Contact with and (suspected) exposure to COVID-19; I10 Essential (primary) hypertension; F11.20 Opioid dependence, uncomplicated; F17.210 Nicotine dependence, cigarettes, uncomplicated
CPT/HCPCS: 36415; 70450; 71250; 72125; 74176; 80048; 80053; 80076; 80307; 81001; 82009; 82077; 82140; 82150; 82550; 82947; 83605; 83615; 83690; 84484; 85025; 87040; 87635; 93005; 96361; 96374; 96375; 97162; 99285